=== PATIENT | female | born 1995 | race Two or more races ===

== ENCOUNTER 2020-09-01 20:56 | Outpatient (CLI) | payer OTHER ==
[2020-09-01] MEDS ORDERED: PRENATAL CAPLE1 EAC1 (21:18)
== END 2020-09-02 18:11 | disposition home or self-care (01) ==
LOC: EDBD 20:56 → OBS/DEL 20:56
PROVIDERS: ATTEND Obstetrics & Gynecology
DX: O26.892 Other specified pregnancy related conditions, second trimester (principal); R10.2 Pelvic and perineal pain; Z3A.27 27 weeks gestation of pregnancy

== ENCOUNTER 2020-11-23 02:57 | Inpatient (IN) | payer OTHER ==
[~2020-11-23] VITALS: Ht 152.4 cm; Wt 52.6 kg
[~2020-11-23 02:57] MED LIST: PRENATAL CAPLE1 EAC1
== END 2020-11-25 13:50 | disposition home or self-care (01) | DRG 807 ==
LOC: LDR 02:57 → OB/GYN 14:12
PROVIDERS: ADMIT Obstetrics & Gynecology; ATTEND Obstetrics & Gynecology
PROC: 10E0XZZ Delivery of Products of Conception, External Approach (ICD-10-PCS; principal; 2020-11-23)
PROC: 10907ZC Drainage of Amniotic Fluid, Therapeutic from Products of Conception, Via Natural or Artificial Opening (ICD-10-PCS; 2020-11-23)
PROC: 3E033VJ Introduction of Other Hormone into Peripheral Vein, Percutaneous Approach (ICD-10-PCS; 2020-11-23)
PROC: 4A1HXFZ Monitoring of Products of Conception, Cardiac Rhythm, External Approach (ICD-10-PCS; 2020-11-23)
DX: O80 Encounter for full-term uncomplicated delivery (principal); Z37.0 Single live birth; Z3A.39 39 weeks gestation of pregnancy; Z20.822 Contact with and (suspected) exposure to COVID-19

== ENCOUNTER 2024-05-13 12:18 | Emergency (ER) | payer OTHER ==
[~2024-05-13] VITALS: Ht 152.4 cm; Wt 43.5 kg
[2024-05-13] MEDS ORDERED: ACETAMINOPHEN 500 MG GEL..CAP PO ONE (15:30)
[2024-05-13 17:37] LABS: HEMATOCRIT 41.1 % (36.0-45.00); HEMOGLOBIN 14.1 g/dL (12.0-15.00); MEAN CELL VOLUME 89.1 fL (80.00-100.00); MEAN CORPUSCULAR HEMOGLOBIN 30.6 pg (27.00-32.0); MEAN CORPUSCULAR HGB CONC 34.3 g/dl (32.0-36.0); PLATELET COUNT 253 K/uL (150-450); RED BLOOD COUNT 4.61 M/uL (4.00-6.00); RED CELL DISTRIBUTION WIDTH 13.5 % (11.5-14.5)
[2024-05-13 18:04] LABS: ALBUMIN 4.2 gm/dL (3.4-5.0); BILIRUBIN TOTAL 0.66 mg/dL (0.3-1.2); CALCIUM 9.2 mg/dL (8.5-10.1); CREATININE SERUM 0.55 mg/dL (0.55-1.02); GFR 130.68; GLOBULINA 3.3 G/DL (2.4-3.5); POTASSIUM 3.69 mEq/L (3.5-5.1); TOTAL PROTEIN 7.5 gm/dL (6.4-8.2)
[2024-05-13 18:28] LABS: URINE APPEARANCE Clear; URINE BILIRRUBIN Negative (NEGATIVE); URINE BLOOD Small; URINE COLOR Yellow; URINE GLUCOSE Negative (NEGATIVE); URINE KETONE Negative (NEGATIVE); URINE LEUKOCYTE Trace; URINE NITRATE Negative; URINE PROTEIN Negative (NEGATIVE); URINE UROBILINOGEN 0.2 E.U./dl
[2024-05-13 18:32] LABS: URINE BACTERIA 90.5 uL (0.0-1933); URINE RBC 14.2 uL (0.0-20.8); URINE WBC 16.7 uL (0.0-23.2)
[2024-05-13] MEDS ORDERED: METRONIDAZOLE500 MG PO (21:42)
[2024-05-13] MEDS ORDERED: MACROBID 100 M100 MG PO (21:42)
== END 2024-05-13 21:59 | disposition home or self-care (01) ==
LOC: ER 12:20
PROVIDERS: Nurse Practitioner Family
DX: R30.0 Dysuria (principal); R10.2 Pelvic and perineal pain